=== PATIENT | female | born 1960 | race Caucasian/White ===

== ENCOUNTER 2016-06-11 14:23 | Emergency (ER) | payer OTHER ==
--- NOTE | 2016-06-11 15:05 | ED ORDER SUMMARY ---
..... Patient: KERRIE WYNNE OrderSheet [facility] VisitID: [id number] [address] [place] [address] 56y, F Registration Date/Time: 06/11/2016 ORDER SHEET Weight: 106.5 kg (stated) Allergies: Demerol, Iodine, Morphine and Related, Sulfa Antibiotics, Latex, Iodides, Iodine, Embril GENERAL ORDERS: MEDICATION ORDERS: Dexamethasone IM 8 mg (NOW) (14:46 06/11/2016 HBivens A.R.N.P.) (15:06 EHassan R.N.) Benadryl IM 50 mg (NOW) (14:46 06/11/2016 HBivens A.R.N.P.) (15:06 EHassan R.N.) IV FLUIDS: ORDER SHEET NOTES: [Electronically signed by Lauryn Obando R.N. (15:21 06/11/2016)] [Electronically signed by Lindsey Melvin.R.N.P. (16:12 06/11/2016)] [Electronically locked/signed by Lauryn Obando R.N. (15:21 06/11/2016)]
--- NOTE | 2016-06-11 15:05 | ED NURSING NOTES ---
Clinical Report - Nurses [facility] [address] [place] [address] 06/11/2016 14:24 Patient: KERRIE WYNNE TRIAGE Triage time 14:34. Chief Complaint: SKIN RASH and . "psoriasis outbreak" after trying apple cider vinegar. --14:36 Nicole Sahu R.N. Acuity: LEVEL 5. --14:43 Nicole Sahu R.N. 14:37 06/11/16. BP: 121/70. HR: 97. RR: 15. O2 saturation: 100%. Temp: 97.4 F (oral). Pain level now: 11/05. --14:43 Nicole Sahu R.N. Acuity: LEVEL 5. Alert. No acute distress. SEPSIS SCREEN: Sepsis Screen. Negative (no infection suspected/documented). --14:46 Lauryn Obando R.N. Weight: 106.5 kg stated. Height/Length: 63 inches Per Patient. BMI: 41.6. --14:39 Nicole Sahu R.N. Medications MetFORMIN HCl Oral 1000mg, daily. --14:38 Nicole Sahu R.N. HydrOXYzine HCl Oral. --14:39 Nicole Sahu R.N. ZyrTEC Allergy Childrens Oral. --14:46 Lauryn Obando R.N. Medication/allergy information source: the patient. --14:46 Lauryn Obando R.N. Allergies Demerol. Iodine. Morphine and Related. Sulfa Antibiotics. --14:38 Nicole Sahu R.N. Latex. --14:38 Nicole Sahu R.N. Iodides. Iodine. --14:39 Nicole Sahu R.N. Embril. --14:49 Lauryn Obando R.N. History Arrived by private vehicle. Historian: patient. Accompanied by family. Primary physician (Iraj at [facility]). Reported as generalized in location. It is described as itchy, burning and painful. Treatment DIGITAL MARKETING INTERN: (drinking apple cider vinegar). --14:36 Nicole Sahu R.N. The patient has had fever and itching. No muscle aches, headache, cough or difficulty breathing. Treatment DIGITAL MARKETING INTERN: (hydroxyzine, benadryl). FALL RISK ASSESSMENT: Fall risk assessment completed. No fall risk identified. NUTRITIONAL RISK ASSESSMENT: The nutritional risk assessment revealed no deficiencies. FUNCTIONAL ASSESSMENT: Functional assessment: no impairments noted. LEARNING NEEDS ASSESSMENT: The learning needs assessment revealed no barriers. SKIN INTEGRITY ASSESSMENT: Skin integrity risk assessment completed. No skin integrity risk identified. --14:43 Nicole Sahu R.N. Onset. (3 weeks). It is described as itchy, burning and painful. She was recently exposed to food (as possible allergen). No recent insect bite. She has had itching. No fever, muscle aches, headache, cough or difficulty breathing. No weakness. Treatment DIGITAL MARKETING INTERN: None. PAST MEDICAL HX: Immunizations: up-to-date. Last normal menstrual period- 14 years. The patient has had a hysterectomy. SOCIAL HX: Never smoker. Occasional alcohol use. No drug use. No infectious disease exposure. ABUSE ASSESSMENT: No report of abuse. SELF HARM ASSESSMENT: A self harm assessment was performed. The patient answered "no" to the question "Do you have thoughts of harming or killing yourself?" and "Have you recently had thoughts about harming or killing others?". FALL RISK ASSESSMENT: Fall risk assessment completed. No fall risk identified. NUTRITIONAL RISK ASSESSMENT: The nutritional risk assessment revealed no deficiencies. FUNCTIONAL ASSESSMENT: Functional assessment: no impairments noted. LEARNING NEEDS ASSESSMENT: The learning needs assessment revealed no barriers. SKIN INTEGRITY ASSESSMENT: Skin integrity risk assessment completed. No skin integrity risk identified. --14:46 Lauryn Obando R.N. PROBLEMS: Muscle Spasm. Contusion. Prior Injury, Same Area. Sprain. Immunizations. LNMP - Last Normal Menstrual Period. Tetanus Status. Hypertension. Carpal Bone Fracture. --14:39 Nicole Sahu R.N. ADDITIONAL SURGERIES: . Hysterectomy. Oophorectomy. --14:39 Nicole Sahu R.N. Interventions ID band on patient. --14:43 Nicole Sahu R.N. ID band on patient. --14:46 Lauryn Obando R.N. PHYSICAL ASSESSMENT Ambulatory to room. GENERAL / NEURO / PSYCH: Alert. The patient does not appear to be in acute distress. Appears in pain. Oriented X 4. HEENT: Pupils equal, round and reactive to light. Mucous membranes are pink. RESPIRATORY: Respirations not labored. Breath sounds within normal limits. CVS: Capillary refill less than 2 seconds. Pulses within normal limits. SKIN: Skin is warm and dry. Generalized erythematous, tender, warm, macular, raised, crusting skin rash in the skin folds, right axilla, right groin and left axilla, on the neck, chest, breast, abdomen, back, waist area, right shoulder, right arm, right elbow, right forearm, right buttock, right thigh, right knee, right leg, right ankle, right foot, left shoulder, left arm, left elbow, left forearm and left wrist. Normal skin turgor. Increased warmth present. --14:48 Lauryn Obando R.N. NURSING PROGRESS NOTES The initial plan of care for this patient has been created This plan of care was discussed with the patient. Patient gowned. Reassurance given. Two patient identifiers checked. Call light placed in reach. Side rails up x 1. Bed placed in lowest position. Brakes of bed on. --14:49 Lauryn Obando R.N. 15:01 06/11/2016 Dexamethasone IM 8 mg given. Given in the right gluteus nathalia. Allergies verified and confirmed 5 rights. --15:06 Lauryn Obando R.N. 15:06 06/11/2016 Benadryl (DiphenhydrAMINE HCl) IM 50 mg given. Given in the right deltoid. Allergies verified, confirmed 5 rights and sedative warning given to the patient. --15:06 Lauyrn Obando R.N. 15:15 06/11/2016 Dexamethasone IM Response: no adverse reaction. --15:21 Lauryn Obando R.N. 15:21 06/11/2016 Benadryl IM Response: no adverse reaction. --15:21 Lauryn Obando R.N. DISPOSITION / DISCHARGE Departure time: 1520 PM. Condition at departure: unchanged and stable. The goals identified in the patient's plan of care were met. No learning barriers present. Discharge instructions provided and reviewed with the patient. Reviewed medication(s) side effects, precautions, dosing and course information. Prescription(s) given to the patient. Patient and spouse verbalized understanding. Written instructions provided in Niuean. No treatment instructions or referrals given to the patient. The patient was discharged by the nurse practitioner. She was discharged home and accompanied by spouse. She left the Emergency Department ambulatory and via private vehicle. Spouse driving. FALL RISK ASSESSMENT: Fall risk assessment completed. No fall risk identified. --15:21 Lauryn Obando R.N. 15:15 06/11/16. BP: 125/84. HR: 78. RR: 5. O2 saturation: 100% on room air. Temp: 97.7 F (oral). Pain level now: 8/10. --15:21 Lauryn Obando R.N. Locked/Released at 06/11/2016 15:21 by Lauryn Obando R.N.
--- NOTE | 2016-06-11 15:05 | ED CLINICAL REPORT ---
Clinical Report - Physicians/Mid Levels [facility] [address] [place] [address] 06/11/2016 14:24 Patient: KERRIE WYNNE Time Seen: 14:37; initial patient contact, initial documentation, patient care assumed. Arrived- By private vehicle. Historian- patient and spouse. HISTORY OF PRESENT ILLNESS Chief Complaint: SKIN RASH. This started about 3 weeks ago and is still present and worsening. It is described as itchy, painful and burning. It has been generalized in location. A possible cause has been identified (psoriasis). Similar symptoms previously: Chronically, milder. Recent medical care: The patient was seen recently in the office. ( went to dr about 2 wks ago, given hydroxyzine, no better, has appt with derm 06/26). REVIEW OF SYSTEMS No difficulty breathing. All systems otherwise negative, except as recorded above. PAST HISTORY See nurses notes. PROBLEMS: Muscle Spasm. Contusion. Prior Injury, Same Area. Sprain. Immunizations. LNMP - Last Normal Menstrual Period. Tetanus Status. Hypertension. Carpal Bone Fracture. --14:39 Nicole Sahu R.N. ADDITIONAL SURGERIES: . Hysterectomy. Oophorectomy. --14:39 Nicole Sahu R.N. Severe psoriasis. SOCIAL HISTORY Never smoker. No alcohol use or drug use. No recent travel. Is a local resident. She lives with spouse. FAMILY HISTORY Negative. ADDITIONAL NOTES The nursing notes have been reviewed with agreement regarding the chief complaint, HPI, ROS, PMH and patient medications and allergies. PHYSICAL EXAM Vital Signs: 06/11/2016 14:37 BP: 121/70. HR: 97. RR: 15. O2 saturation: 100%. Temp: 97.4 F. Pain level now: 9/10. Have been reviewed as normal and appear to be correct. Appearance: Alert. Oriented X3. No acute distress. Eyes: Pupils equal, round and reactive to light. Conjunctivae and eyelids normal. ENT: Nose normal. Pharynx normal. Neck: Neck supple. CVS: Normal heart rate and rhythm. Heart sounds normal. Respiratory: No respiratory distress. Breath sounds normal. Chest nontender. Abdomen: Nontender. No organomegaly. (morbid obese). Skin: Skin warm and dry. Normal skin color. Rash present. Normal skin turgor. Generalized severe, well-demarcated, erythematous, macular, raised, crusting, excoriated skin rash with an erythematous base and a cobblestone appearance present in the skin folds- silver crusts present, generalized, worse in skin folds. Extremities: Normal external inspection. Extremities nontender. Neuro: Oriented X 3. No motor deficit. No sensory deficit. PROGRESS AND PROCEDURES Patient and spouse counseled in person regarding the patient's stable condition and diagnosis. Differential Diagnosis: Other possible considerations: psoriasis, fungal, dermatitis, urticaria. Above considerations are based on history and physical exam. Differential diagnosis was discussed with patient. Disposition: Discharged home in good and improved condition (15:04). Condition: good and stable. 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 INSTRUCTIONS Warnings: GENERAL WARNINGS: Return or contact your physician immediately if your condition worsens or changes unexpectedly, if not improving as expected, or if other problems arise. Specifically return if problem worsens. Prescription Medications: Medrol Dosepak: take according to package directions. Dispense one (1) dosepak. No refills. Substitution is permissible. Triamcinolone 0.1% Cream: Apply to affected areas 2 times daily as needed. Dispense fifteen (15) gm. No refills. Follow-up: Follow up with a household coordinator as scheduled even if well. Reason for referral: or sooner if able. Summary of care provided to patient. Understanding of the discharge instructions verbalized by patient. (Electronically signed by Lindsey Melvin A.R.N.P. 06/11/2016 16:12)
--- NOTE | 2016-06-11 15:05 | ED ORDER SUMMARY ---
..... Patient: KERRIE WYNNE OrderSheet [facility] VisitID: [id number] [address] [place] [address] 56y, F Registration Date/Time: 06/11/2016 ORDER SHEET Weight: 106.5 kg (stated) Allergies: Demerol, Iodine, Morphine and Related, Sulfa Antibiotics, Latex, Iodides, Iodine, Embril GENERAL ORDERS: MEDICATION ORDERS: Dexamethasone IM 8 mg (NOW) (14:46 06/11/2016 HBivens A.R.N.P.) (15:06 EHassan R.N.) Benadryl IM 50 mg (NOW) (14:46 06/11/2016 HBivens A.R.N.P.) (15:06 EHassan R.N.) IV FLUIDS: ORDER SHEET NOTES: [Electronically signed by Lauryn Obando R.N. (15:21 06/11/2016)] [Electronically signed by Lindsey Melvin.R.N.P. (16:12 06/11/2016)] [Electronically locked/signed by Lauryn Obando R.N. (15:21 06/11/2016)]
--- NOTE | 2016-06-11 15:05 | ED NURSING NOTES ---
Clinical Report - Nurses [facility] [address] [place] [address] 06/11/2016 14:24 Patient: KERRIE WYNNE TRIAGE Triage time 14:34. Chief Complaint: SKIN RASH and . "psoriasis outbreak" after trying apple cider vinegar. --14:36 Nicole Sahu R.N. Acuity: LEVEL 5. --14:43 Nicole Sahu R.N. 14:37 06/11/16. BP: 121/70. HR: 97. RR: 15. O2 saturation: 100%. Temp: 97.4 F (oral). Pain level now: 11/05. --14:43 Nicole Sahu R.N. Acuity: LEVEL 5. Alert. No acute distress. SEPSIS SCREEN: Sepsis Screen. Negative (no infection suspected/documented). --14:46 Lauryn Obando R.N. Weight: 106.5 kg stated. Height/Length: 63 inches Per Patient. BMI: 41.6. --14:39 Nicole Sahu R.N. Medications MetFORMIN HCl Oral 1000mg, daily. --14:38 Nicole Sahu R.N. HydrOXYzine HCl Oral. --14:39 Nicole Sahu R.N. ZyrTEC Allergy Childrens Oral. --14:46 Lauryn Obando R.N. Medication/allergy information source: the patient. --14:46 Lauryn Obando R.N. Allergies Demerol. Iodine. Morphine and Related. Sulfa Antibiotics. --14:38 Nicole Sahu R.N. Latex. --14:38 Nicole Sahu R.N. Iodides. Iodine. --14:39 Nicole Sahu R.N. Embril. --14:49 Lauryn Obando R.N. History Arrived by private vehicle. Historian: patient. Accompanied by family. Primary physician (Iraj at [facility]). Reported as generalized in location. It is described as itchy, burning and painful. Treatment INTELLIGENCE OFFICER BASIC: (drinking apple cider vinegar). --14:36 Nicole Sahu R.N. The patient has had fever and itching. No muscle aches, headache, cough or difficulty breathing. Treatment INTELLIGENCE OFFICER BASIC: (hydroxyzine, benadryl). FALL RISK ASSESSMENT: Fall risk assessment completed. No fall risk identified. NUTRITIONAL RISK ASSESSMENT: The nutritional risk assessment revealed no deficiencies. FUNCTIONAL ASSESSMENT: Functional assessment: no impairments noted. LEARNING NEEDS ASSESSMENT: The learning needs assessment revealed no barriers. SKIN INTEGRITY ASSESSMENT: Skin integrity risk assessment completed. No skin integrity risk identified. --14:43 Nicole Sahu R.N. Onset. (3 weeks). It is described as itchy, burning and painful. She was recently exposed to food (as possible allergen). No recent insect bite. She has had itching. No fever, muscle aches, headache, cough or difficulty breathing. No weakness. Treatment INTELLIGENCE OFFICER BASIC: None. PAST MEDICAL HX: Immunizations: up-to-date. Last normal menstrual period- 14 years. The patient has had a hysterectomy. SOCIAL HX: Never smoker. Occasional alcohol use. No drug use. No infectious disease exposure. ABUSE ASSESSMENT: No report of abuse. SELF HARM ASSESSMENT: A self harm assessment was performed. The patient answered "no" to the question "Do you have thoughts of harming or killing yourself?" and "Have you recently had thoughts about harming or killing others?". FALL RISK ASSESSMENT: Fall risk assessment completed. No fall risk identified. NUTRITIONAL RISK ASSESSMENT: The nutritional risk assessment revealed no deficiencies. FUNCTIONAL ASSESSMENT: Functional assessment: no impairments noted. LEARNING NEEDS ASSESSMENT: The learning needs assessment revealed no barriers. SKIN INTEGRITY ASSESSMENT: Skin integrity risk assessment completed. No skin integrity risk identified. --14:46 Lauryn Obando R.N. PROBLEMS: Muscle Spasm. Contusion. Prior Injury, Same Area. Sprain. Immunizations. LNMP - Last Normal Menstrual Period. Tetanus Status. Hypertension. Carpal Bone Fracture. --14:39 Nicole Sahu R.N. ADDITIONAL SURGERIES: . Hysterectomy. Oophorectomy. --14:39 Nicole Sahu R.N. Interventions ID band on patient. --14:43 Nicole Sahu R.N. ID band on patient. --14:46 Lauryn Obando R.N. PHYSICAL ASSESSMENT Ambulatory to room. GENERAL / NEURO / PSYCH: Alert. The patient does not appear to be in acute distress. Appears in pain. Oriented X 4. HEENT: Pupils equal, round and reactive to light. Mucous membranes are pink. RESPIRATORY: Respirations not labored. Breath sounds within normal limits. CVS: Capillary refill less than 2 seconds. Pulses within normal limits. SKIN: Skin is warm and dry. Generalized erythematous, tender, warm, macular, raised, crusting skin rash in the skin folds, right axilla, right groin and left axilla, on the neck, chest, breast, abdomen, back, waist area, right shoulder, right arm, right elbow, right forearm, right buttock, right thigh, right knee, right leg, right ankle, right foot, left shoulder, left arm, left elbow, left forearm and left wrist. Normal skin turgor. Increased warmth present. --14:48 Lauryn Obando R.N. NURSING PROGRESS NOTES The initial plan of care for this patient has been created This plan of care was discussed with the patient. Patient gowned. Reassurance given. Two patient identifiers checked. Call light placed in reach. Side rails up x 1. Bed placed in lowest position. Brakes of bed on. --14:49 Lauryn Obando R.N. 15:01 06/11/2016 Dexamethasone IM 8 mg given. Given in the right gluteus nathalia. Allergies verified and confirmed 5 rights. --15:06 Lauryn Obando R.N. 15:06 06/11/2016 Benadryl (DiphenhydrAMINE HCl) IM 50 mg given. Given in the right deltoid. Allergies verified, confirmed 5 rights and sedative warning given to the patient. --15:06 Lauryn Obando R.N. 15:15 06/11/2016 Dexamethasone IM Response: no adverse reaction. --15:21 Lauryn Obando R.N. 15:21 06/11/2016 Benadryl IM Response: no adverse reaction. --15:21 Lauryn Obando R.N. DISPOSITION / DISCHARGE Departure time: 1520 PM. Condition at departure: unchanged and stable. The goals identified in the patient's plan of care were met. No learning barriers present. Discharge instructions provided and reviewed with the patient. Reviewed medication(s) side effects, precautions, dosing and course information. Prescription(s) given to the patient. Patient and spouse verbalized understanding. Written instructions provided in Peruvian. No treatment instructions or referrals given to the patient. The patient was discharged by the nurse practitioner. She was discharged home and accompanied by spouse. She left the Emergency Department ambulatory and via private vehicle. Spouse driving. FALL RISK ASSESSMENT: Fall risk assessment completed. No fall risk identified. --15:21 Lauryn Obando R.N. 15:15 06/11/16. BP: 125/84. HR: 78. RR: 5. O2 saturation: 100% on room air. Temp: 97.7 F (oral). Pain level now: 8/10. --15:21 Lauryn Obando R.N. Locked/Released at 06/11/2016 15:21 by Lauryn Obando R.N.
--- NOTE | 2016-06-11 15:05 | ED CLINICAL REPORT ---
Clinical Report - Physicians/Mid Levels [facility] [address] [place] [address] 06/11/2016 14:24 Patient: KERRIE WYNNE Time Seen: 14:37; initial patient contact, initial documentation, patient care assumed. Arrived- By private vehicle. Historian- patient and spouse. HISTORY OF PRESENT ILLNESS Chief Complaint: SKIN RASH. This started about 3 weeks ago and is still present and worsening. It is described as itchy, painful and burning. It has been generalized in location. A possible cause has been identified (psoriasis). Similar symptoms previously: Chronically, milder. Recent medical care: The patient was seen recently in the office. ( went to dr about 2 wks ago, given hydroxyzine, no better, has appt with derm 06/26). REVIEW OF SYSTEMS No difficulty breathing. All systems otherwise negative, except as recorded above. PAST HISTORY See nurses notes. PROBLEMS: Muscle Spasm. Contusion. Prior Injury, Same Area. Sprain. Immunizations. LNMP - Last Normal Menstrual Period. Tetanus Status. Hypertension. Carpal Bone Fracture. --14:39 Nicole Sahu R.N. ADDITIONAL SURGERIES: . Hysterectomy. Oophorectomy. --14:39 Nicole Sahu R.N. Severe psoriasis. SOCIAL HISTORY Never smoker. No alcohol use or drug use. No recent travel. Is a local resident. She lives with spouse. FAMILY HISTORY Negative. ADDITIONAL NOTES The nursing notes have been reviewed with agreement regarding the chief complaint, HPI, ROS, PMH and patient medications and allergies. PHYSICAL EXAM Vital Signs: 06/11/2016 14:37 BP: 121/70. HR: 97. RR: 15. O2 saturation: 100%. Temp: 97.4 F. Pain level now: 9/10. Have been reviewed as normal and appear to be correct. Appearance: Alert. Oriented X3. No acute distress. Eyes: Pupils equal, round and reactive to light. Conjunctivae and eyelids normal. ENT: Nose normal. Pharynx normal. Neck: Neck supple. CVS: Normal heart rate and rhythm. Heart sounds normal. Respiratory: No respiratory distress. Breath sounds normal. Chest nontender. Abdomen: Nontender. No organomegaly. (morbid obese). Skin: Skin warm and dry. Normal skin color. Rash present. Normal skin turgor. Generalized severe, well-demarcated, erythematous, macular, raised, crusting, excoriated skin rash with an erythematous base and a cobblestone appearance present in the skin folds- silver crusts present, generalized, worse in skin folds. Extremities: Normal external inspection. Extremities nontender. Neuro: Oriented X 3. No motor deficit. No sensory deficit. PROGRESS AND PROCEDURES Patient and spouse counseled in person regarding the patient's stable condition and diagnosis. Differential Diagnosis: Other possible considerations: psoriasis, fungal, dermatitis, urticaria. Above considerations are based on history and physical exam. Differential diagnosis was discussed with patient. Disposition: Discharged home in good and improved condition (15:04). Condition: good and stable. 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 INSTRUCTIONS Warnings: GENERAL WARNINGS: Return or contact your physician immediately if your condition worsens or changes unexpectedly, if not improving as expected, or if other problems arise. Specifically return if problem worsens. Prescription Medications: Medrol Dosepak: take according to package directions. Dispense one (1) dosepak. No refills. Substitution is permissible. Triamcinolone 0.1% Cream: Apply to affected areas 2 times daily as needed. Dispense fifteen (15) gm. No refills. Follow-up: Follow up with a tack picker as scheduled even if well. Reason for referral: or sooner if able. Summary of care provided to patient. Understanding of the discharge instructions verbalized by patient. (Electronically signed by Lindsey Melvin A.R.N.P. 06/11/2016 16:12)
--- NOTE | 2016-06-11 16:12 | ED DISCHARGE INSTRUCTIONS ---
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 INSTRUCTIONS Warnings: GENERAL WARNINGS: Return or contact your physician immediately if your condition worsens or changes unexpectedly, if not improving as expected, or if other problems arise. Specifically return if problem worsens. Prescription Medications: Medrol Dosepak: take according to package directions. Dispense one (1) dosepak. No refills. Substitution is permissible. Triamcinolone 0.1% Cream: Apply to affected areas 2 times daily as needed. Dispense fifteen (15) gm. No refills. Follow-up: Follow up with a running instructor as scheduled even if well. Reason for referral: or sooner if able. Summary of care provided to patient. Understanding of the discharge instructions verbalized by patient. ADDITIONAL INFORMATION Psoriasis Psoriasis is an inflammatory condition that affects the skin and nails. You may have patches of thick, red skin (plaques) covered with silvery scales. These usually appear on the elbows, knees, legs, lower back, and scalp. The plaques itch and can be painful. In more severe cases there may also be psychological and emotional distress. Psoriasis is not contagious but can be inherited. The latest research shows that this may be an immune disorder. The immune system reacts to healthy skin as if it were a foreign substance. This causes skin cells to grow faster than normal and to stack up in raised red patches.The disease is chronic with periods of flares and remissions. Factors such as smoking, sun exposure, and alcohol use may affect how often the psoriasis occurs and how long the flares last. No cure exists, but treatments can offer relief. Treatment consists of a combination of topical creams, light therapy (phototherapy), and oral medicines. Home Care: No specific diet is required. Eat a healthy, well-balanced diet that includes fresh fruits and vegetables, whole grains, and lean meats. Increasing omega-3 fatty acids in your dietcan help improve skin dryness. The best dietary sources are fatty fish (salmon, mackerel, joseph trout, albacore tuna) or fish oil (such as cod liver oil). A great way to take fish oil is to add it to a juice, shake, or smoothie. Flaxseeds and flaxseed oil, canola oil, walnuts, soybean and tofu are converted to omega-3 fatty acid in the body. Maintain a healthy weight. Overlapping skin folds can be a site for psoriasis plaques. If you are overweight, talk to your doctor about a weight-loss program. Bathing daily can help remove scales and calm inflamed skin. Use lukewarm water and mild soaps that have added oils, fats, and moisturizers. Avoid deodorants, antiperspirantsand antibacterial soaps since these have a drying effect. Many find that soaking in a tub with added bath oils, oatmeal, apple cider vinegar, or Epsom salts is helpful. After bathing, apply moisturizing cream (or a skin oil for a stronger effect). Moderate amount of exposure to UV rays from the sun can improve psoriasis but overexposure can trigger an outbreak. It also increases your risk for skin cancer. So limit sun exposure and use sunscreen on healthy skin (at least 15 SPF). If you are prescribed medication, take it as directed. Unless another steroid cream was prescribed, you may use [id number] hydrocortisone cream for a few weeks during flare-ups of your symptoms. Stop smoking. If you are a long-time smoker, this can be hard. Enroll in a stop-smoking program to improve your chance of success. Follow Up with your doctor or as advised by our staff. Get Prompt Medical Attention if any of the following occur: Increasing skin pain Bleeding from the skin plaques that is hard to control Signs of skin infection (redness, increasing pain, swelling, pus) Fever of 100.4F (38C) or higher, or as directed by your healthcare provider Methylprednisolone Oral tablet What is this medicine? METHYLPREDNISOLONE (meth ill pred NISS oh lone) is a corticosteroid. It is commonly used to treat inflammation of the skin, joints, lungs, and other organs. Common conditions treated include asthma, allergies, and arthritis. It is also used for other conditions, such as blood disorders and diseases of the adrenal glands. How should I use this medicine? Take this medicine by mouth with a drink of water. Follow the directions on the prescription label. Take it with food or milk to avoid stomach upset. If you are taking this medicine once a day, take it in the morning. Do not take more medicine than you are told to take. Do not suddenly stop taking your medicine because you may develop a severe reaction. Your doctor will tell you how much medicine to take. If your doctor wants you to stop the medicine, the dose may be slowly lowered over time to avoid any side effects. Talk to your tripper regarding the use of this medicine in children. Special care may be needed. What side effects may I notice from receiving this medicine? Side effects that you should report to your doctor or health direct support professional caregiver as soon as possible: allergic reactions like skin rash, itching or hives, swelling of the face, lips, or tongue eye pain, decreased or blurred vision, or bulging eyes fever, sore throat, sneezing, cough, or other signs of infection, wounds that will not heal increased thirst mental depression, mood swings, mistaken feelings of self importance or of being mistreated pain in hips, back, ribs, arms, shoulders, or legs swelling of the ankles, feet, hands trouble passing urine or change in the amount of urine Side effects that usually do not require medical attention (report to your doctor or health direct support professional caregiver if they continue or are bothersome): confusion, excitement, restlessness headache nausea, vomiting skin problems, acne, thin and shiny skin weight gain What may interact with this medicine? Do not take this medicine with any of the following medications: mifepristone This medicine may also interact with the following medications: tacrolimus vaccines warfarin What if I miss a dose? If you miss a dose, take it as soon as you can. If it is almost time for your next dose, talk to your doctor or health direct support professional caregiver. You may need to miss a dose or take an extra dose. Do not take double or extra doses without advice. Where should I keep my medicine? Keep out of the reach of children. Store at room temperature between 20 and 25 degrees C (68 and 77 degrees F). Throw away any unused medicine after the expiration date. What should I tell my health care provider before I take this medicine? They need to know if you have any of these conditions: David's syndrome diabetes glaucoma heart problems or disease high blood pressure infection such as herpes, measles, tuberculosis, or chickenpox kidney disease liver disease mental problems myasthenia gravis osteoporosis seizures stomach ulcer or intestine disease including colitis and diverticulitis thyroid problem an unusual or allergic reaction to lactose, methylprednisolone, other medicines, foods, dyes, or preservatives or trying to get breast-feeding What should I watch for while using this medicine? Visit your doctor or health direct support professional caregiver for regular checks on your progress. If you are taking this medicine for a long time, carry an identification card with your name and address, the type and dose of your medicine, and your doctor's name and address. The medicine may increase your risk of getting an infection. Stay away from people who are sick. Tell your doctor or health direct support professional caregiver if you are around anyone with measles or chickenpox. If you are going to have surgery, tell your doctor or health direct support professional caregiver that you have taken this medicine within the last twelve months. Ask your doctor or health direct support professional caregiver about your diet. You may need to lower the amount of salt you eat. The medicine can increase your blood sugar. If you are a diabetic check with your doctor if you need help adjusting the dose of your diabetic medicine. Triamcinolone Acetonide, Distilled Water Topical cream What is this medicine? TRIAMCINOLONE (trye am SIN oh lone) is a corticosteroid. It is used on the skin to reduce swelling, redness, itching, and allergic reactions. How should I use this medicine? This medicine is for external use only. Do not take by mouth. Follow the directions on the prescription label. Wash your hands before and after use. Apply a thin film of medicine to the affected area. Do not cover with a bandage or dressing unless your doctor or health direct support professional caregiver tells you to. Do not use on healthy skin or over large areas of skin. Do not get this medicine in your eyes. If you do, rinse out with plenty of cool tap water. It is important not to use more medicine than prescribed. Do not use your medicine more often than directed. Talk to your tripper regarding the use of this medicine in children. Special care may be needed. Elderly patients are more likely to have damaged skin through aging, and this may increase side effects. This medicine should only be used for brief periods and infrequently in older patients. What side effects may I notice from receiving this medicine? Side effects that you should report to your doctor or health direct support professional caregiver as soon as possible: burning or itching of the skin dark red spots on the skin infection painful, red, pus filled blisters in hair follicles thinning of the skin, sunburn more likely especially on the face Side effects that usually do not require medical attention (report to your doctor or health direct support professional caregiver if they continue or are bothersome): dry skin, irritation unusual increased growth of hair on the face or body What may interact with this medicine? Interactions are not expected. What if I miss a dose? If you miss a dose, use it as soon as you can. If it is almost time for your next dose, use only that dose. Do not use double or extra doses. Where should I keep my medicine? Keep out of the reach of children. Store at room temperature between 15 and 30 degrees C (59 and 86 degrees F). Do not freeze. Throw away any unused medicine after the expiration date. What should I tell my health care provider before I take this medicine? They need to know if you have any of these conditions: diabetes infection, like tuberculosis, herpes, or fungal infection large areas of burned or damaged skin skin wasting or thinning an unusual or allergic reaction to triamcinolone, corticosteroids, other medicines, foods, dyes, or preservatives or trying to get breast-feeding What should I watch for while using this medicine? Tell your doctor or health direct support professional caregiver if your symptoms do not start to get better within one week. Do not use for more than 14 days. Do not use on healthy skin or over large areas of skin. Tell your doctor or health direct support professional caregiver if you are exposed to anyone with measles or chickenpox, or if you develop sores or blisters that do not heal properly. Do not use an airtight bandage to cover the affected area unless your doctor or health direct support professional caregiver tells you to. If you are to cover the area, follow the instructions carefully. Covering the area where the medicine is applied can increase the amount that passes through the skin and increases the risk of side effects. If treating the diaper area of a child, avoid covering the treated area with tight-fitting diapers or plastic pants. This may increase the amount of medicine that passes through the skin and increase the risk of serious side effects. You have been given the following additional information: Psoriasis Methylprednisolone Oral tablet Triamcinolone Acetonide, Distilled Water Topical cream (Electronically signed by Lindsey Melvin A.R.N.P. 06/11/2016 16:12)
--- NOTE | 2016-06-11 16:12 | ED MED RECONCILIATION SUMMARY ---
Patient: KERRIE WYNNE Medication Reconciliation Report [facility] VisitID: [id number] [address] [place] [address] 56y, F Registration Date/Time: 06/11/2016 Weight: 106.5 kg Height/Length: 63 in. BMI: 41.6 ALLERGIES: Demerol, Embril, Iodides, Iodine, Iodine, Latex, Morphine and Related, Sulfa Antibiotics The patient's Home Medications are listed below: THE FOLLOWING MEDICATIONS NEED TO BE RECONCILED: HydrOXYzine HCl Oral MetFORMIN HCl Oral 1000mg, daily ZyrTEC Allergy Childrens Oral The source(s) of the original Home Medication information: patient The following Medications were given to the patient in the Emergency Department: Dexamethasone [IM] IM 8 mg, administered: 06/11/2016 3:01:00 PM Benadryl [IM] IM 50 mg, administered: 06/11/2016 3:06:00 PM The following Medications were prescribed to the patient: Medrol Dosepak: take according to package directions. Dispense one (1) dosepak. No refills. Substitution is permissible. -- Lindsey Melvin, ArvindR.N.P. Triamcinolone 0.1% Cream: Apply to affected areas 2 times daily as needed. Dispense fifteen (15) gm. No refills. -- Lindsey Melvin A.R.N.P.
--- NOTE | 2016-06-11 16:12 | ED MAR SUMMARY ---
..... Medication Administration Record [facility] [address] [place] [address] Patient: KERRIE WYNNE Visit ID: [id number] 56y, F Weight: 106.5 kg Height/Length: 63 in BMI: 41.6 ALLERGIES: Iodides, Iodine, Latex, Demerol, Iodine, Morphine and Related, Sulfa Antibiotics, Embril Given 15:06/11/2016 Lauryn Obando R.N. Medication Administered: DEXAMETHASONE [IM], Dose: 8 mg IM. Medication Ordered: Dexamethasone IM 8 mg (NOW). Given 15:06/11/2016 Lauryn Obando RAdelineNAdeline Medication Administered: BENADRYL [IM] (DIPHENHYDRAMINE HCL), Dose: 50 mg IM. Medication Ordered: Benadryl IM 50 mg (NOW).
--- NOTE | 2016-06-11 16:12 | ED MED RECONCILIATION SUMMARY ---
Patient: KERRIE WYNNE Medication Reconciliation Report [facility] VisitID: [id number] [address] [place] [address] 56y, F Registration Date/Time: 06/11/2016 Weight: 106.5 kg Height/Length: 63 in. BMI: 41.6 ALLERGIES: Demerol, Embril, Iodides, Iodine, Iodine, Latex, Morphine and Related, Sulfa Antibiotics The patient's Home Medications are listed below: THE FOLLOWING MEDICATIONS NEED TO BE RECONCILED: HydrOXYzine HCl Oral MetFORMIN HCl Oral 1000mg, daily ZyrTEC Allergy Childrens Oral The source(s) of the original Home Medication information: patient The following Medications were given to the patient in the Emergency Department: Dexamethasone [IM] IM 8 mg, administered: 06/11/2016 3:01:00 PM Benadryl [IM] IM 50 mg, administered: 06/11/2016 3:06:00 PM The following Medications were prescribed to the patient: Medrol Dosepak: take according to package directions. Dispense one (1) dosepak. No refills. Substitution is permissible. -- Lindsey Melvin, ArvindR.N.P. Triamcinolone 0.1% Cream: Apply to affected areas 2 times daily as needed. Dispense fifteen (15) gm. No refills. -- Lindsey Melvin A.R.N.P.
--- NOTE | 2016-06-11 16:12 | ED DISCHARGE INSTRUCTIONS ---
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 INSTRUCTIONS Warnings: GENERAL WARNINGS: Return or contact your physician immediately if your condition worsens or changes unexpectedly, if not improving as expected, or if other problems arise. Specifically return if problem worsens. Prescription Medications: Medrol Dosepak: take according to package directions. Dispense one (1) dosepak. No refills. Substitution is permissible. Triamcinolone 0.1% Cream: Apply to affected areas 2 times daily as needed. Dispense fifteen (15) gm. No refills. 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 Reason for referral: or sooner if able. Summary of care provided to patient. Understanding of the discharge instructions verbalized by patient. ADDITIONAL INFORMATION Psoriasis Psoriasis is an inflammatory condition that affects the skin and nails. You may have patches of thick, red skin (plaques) covered with silvery scales. These usually appear on the elbows, knees, legs, lower back, and scalp. The plaques itch and can be painful. In more severe cases there may also be psychological and emotional distress. Psoriasis is not contagious but can be inherited. The latest research shows that this may be an immune disorder. The immune system reacts to healthy skin as if it were a foreign substance. This causes skin cells to grow faster than normal and to stack up in raised red patches.The disease is chronic with periods of flares and remissions. Factors such as smoking, sun exposure, and alcohol use may affect how often the psoriasis occurs and how long the flares last. No cure exists, but treatments can offer relief. Treatment consists of a combination of topical creams, light therapy (phototherapy), and oral medicines. Home Care: No specific diet is required. Eat a healthy, well-balanced diet that includes fresh fruits and vegetables, whole grains, and lean meats. Increasing omega-3 fatty acids in your dietcan help improve skin dryness. The best dietary sources are fatty fish (salmon, mackerel, joseph trout, albacore tuna) or fish oil (such as cod liver oil). A great way to take fish oil is to add it to a juice, shake, or smoothie. Flaxseeds and flaxseed oil, canola oil, walnuts, soybean and tofu are converted to omega-3 fatty acid in the body. Maintain a healthy weight. Overlapping skin folds can be a site for psoriasis plaques. If you are overweight, talk to your doctor about a weight-loss program. Bathing daily can help remove scales and calm inflamed skin. Use lukewarm water and mild soaps that have added oils, fats, and moisturizers. Avoid deodorants, antiperspirantsand antibacterial soaps since these have a drying effect. Many find that soaking in a tub with added bath oils, oatmeal, apple cider vinegar, or Epsom salts is helpful. After bathing, apply moisturizing cream (or a skin oil for a stronger effect). Moderate amount of exposure to UV rays from the sun can improve psoriasis but overexposure can trigger an outbreak. It also increases your risk for skin cancer. So limit sun exposure and use sunscreen on healthy skin (at least 15 SPF). If you are prescribed medication, take it as directed. Unless another steroid cream was prescribed, you may use [id number] hydrocortisone cream for a few weeks during flare-ups of your symptoms. Stop smoking. If you are a long-time smoker, this can be hard. Enroll in a stop-smoking program to improve your chance of success. Follow Up with your doctor or as advised by our staff. Get Prompt Medical Attention if any of the following occur: Increasing skin pain Bleeding from the skin plaques that is hard to control Signs of skin infection (redness, increasing pain, swelling, pus) Fever of 100.4F (38C) or higher, or as directed by your healthcare provider Methylprednisolone Oral tablet What is this medicine? METHYLPREDNISOLONE (meth ill pred NISS oh lone) is a corticosteroid. It is commonly used to treat inflammation of the skin, joints, lungs, and other organs. Common conditions treated include asthma, allergies, and arthritis. It is also used for other conditions, such as blood disorders and diseases of the adrenal glands. How should I use this medicine? Take this medicine by mouth with a drink of water. Follow the directions on the prescription label. Take it with food or milk to avoid stomach upset. If you are taking this medicine once a day, take it in the morning. Do not take more medicine than you are told to take. Do not suddenly stop taking your medicine because you may develop a severe reaction. Your doctor will tell you how much medicine to take. If your doctor wants you to stop the medicine, the dose may be slowly lowered over time to avoid any side effects. Talk to your road freight conductor regarding the use of this medicine in children. Special care may be needed. What side effects may I notice from receiving this medicine? Side effects that you should report to your doctor or health pet care assistant as soon as possible: allergic reactions like skin rash, itching or hives, swelling of the face, lips, or tongue eye pain, decreased or blurred vision, or bulging eyes fever, sore throat, sneezing, cough, or other signs of infection, wounds that will not heal increased thirst mental depression, mood swings, mistaken feelings of self importance or of being mistreated pain in hips, back, ribs, arms, shoulders, or legs swelling of the ankles, feet, hands trouble passing urine or change in the amount of urine Side effects that usually do not require medical attention (report to your doctor or health pet care assistant if they continue or are bothersome): confusion, excitement, restlessness headache nausea, vomiting skin problems, acne, thin and shiny skin weight gain What may interact with this medicine? Do not take this medicine with any of the following medications: mifepristone This medicine may also interact with the following medications: tacrolimus vaccines warfarin What if I miss a dose? If you miss a dose, take it as soon as you can. If it is almost time for your next dose, talk to your doctor or health pet care assistant. You may need to miss a dose or take an extra dose. Do not take double or extra doses without advice. Where should I keep my medicine? Keep out of the reach of children. Store at room temperature between 20 and 25 degrees C (68 and 77 degrees F). Throw away any unused medicine after the expiration date. What should I tell my health care provider before I take this medicine? They need to know if you have any of these conditions: David's syndrome diabetes glaucoma heart problems or disease high blood pressure infection such as herpes, measles, tuberculosis, or chickenpox kidney disease liver disease mental problems myasthenia gravis osteoporosis seizures stomach ulcer or intestine disease including colitis and diverticulitis thyroid problem an unusual or allergic reaction to lactose, methylprednisolone, other medicines, foods, dyes, or preservatives or trying to get breast-feeding What should I watch for while using this medicine? Visit your doctor or health pet care assistant for regular checks on your progress. If you are taking this medicine for a long time, carry an identification card with your name and address, the type and dose of your medicine, and your doctor's name and address. The medicine may increase your risk of getting an infection. Stay away from people who are sick. Tell your doctor or health pet care assistant if you are around anyone with measles or chickenpox. If you are going to have surgery, tell your doctor or health pet care assistant that you have taken this medicine within the last twelve months. Ask your doctor or health pet care assistant about your diet. You may need to lower the amount of salt you eat. The medicine can increase your blood sugar. If you are a diabetic check with your doctor if you need help adjusting the dose of your diabetic medicine. Triamcinolone Acetonide, Distilled Water Topical cream What is this medicine? TRIAMCINOLONE (trye am SIN oh lone) is a corticosteroid. It is used on the skin to reduce swelling, redness, itching, and allergic reactions. How should I use this medicine? This medicine is for external use only. Do not take by mouth. Follow the directions on the prescription label. Wash your hands before and after use. Apply a thin film of medicine to the affected area. Do not cover with a bandage or dressing unless your doctor or health pet care assistant tells you to. Do not use on healthy skin or over large areas of skin. Do not get this medicine in your eyes. If you do, rinse out with plenty of cool tap water. It is important not to use more medicine than prescribed. Do not use your medicine more often than directed. Talk to your road freight conductor regarding the use of this medicine in children. Special care may be needed. Elderly patients are more likely to have damaged skin through aging, and this may increase side effects. This medicine should only be used for brief periods and infrequently in older patients. What side effects may I notice from receiving this medicine? Side effects that you should report to your doctor or health pet care assistant as soon as possible: burning or itching of the skin dark red spots on the skin infection painful, red, pus filled blisters in hair follicles thinning of the skin, sunburn more likely especially on the face Side effects that usually do not require medical attention (report to your doctor or health pet care assistant if they continue or are bothersome): dry skin, irritation unusual increased growth of hair on the face or body What may interact with this medicine? Interactions are not expected. What if I miss a dose? If you miss a dose, use it as soon as you can. If it is almost time for your next dose, use only that dose. Do not use double or extra doses. Where should I keep my medicine? Keep out of the reach of children. Store at room temperature between 15 and 30 degrees C (59 and 86 degrees F). Do not freeze. Throw away any unused medicine after the expiration date. What should I tell my health care provider before I take this medicine? They need to know if you have any of these conditions: diabetes infection, like tuberculosis, herpes, or fungal infection large areas of burned or damaged skin skin wasting or thinning an unusual or allergic reaction to triamcinolone, corticosteroids, other medicines, foods, dyes, or preservatives or trying to get breast-feeding What should I watch for while using this medicine? Tell your doctor or health pet care assistant if your symptoms do not start to get better within one week. Do not use for more than 14 days. Do not use on healthy skin or over large areas of skin. Tell your doctor or health pet care assistant if you are exposed to anyone with measles or chickenpox, or if you develop sores or blisters that do not heal properly. Do not use an airtight bandage to cover the affected area unless your doctor or health pet care assistant tells you to. If you are to cover the area, follow the instructions carefully. Covering the area where the medicine is applied can increase the amount that passes through the skin and increases the risk of side effects. If treating the diaper area of a child, avoid covering the treated area with tight-fitting diapers or plastic pants. This may increase the amount of medicine that passes through the skin and increase the risk of serious side effects. You have been given the following additional information: Psoriasis Methylprednisolone Oral tablet Triamcinolone Acetonide, Distilled Water Topical cream (Electronically signed by Lindsey Melvin A.R.N.P. 06/11/2016 16:12)
--- NOTE | 2016-06-11 16:12 | ED MAR SUMMARY ---
..... Medication Administration Record [facility] [address] [place] [address] Patient: KERRIE WYNNE Visit ID: [id number] 56y, F Weight: 106.5 kg Height/Length: 63 in BMI: 41.6 ALLERGIES: Iodides, Iodine, Latex, Demerol, Iodine, Morphine and Related, Sulfa Antibiotics, Embril Given 15:06/11/2016 Lauryn Obando R.N. Medication Administered: DEXAMETHASONE [IM], Dose: 8 mg IM. Medication Ordered: Dexamethasone IM 8 mg (NOW). Given 15:06/11/2016 Lauryn Obando RAdelineNAdeline Medication Administered: BENADRYL [IM] (DIPHENHYDRAMINE HCL), Dose: 50 mg IM. Medication Ordered: Benadryl IM 50 mg (NOW).
== END 2016-06-11 15:21 | disposition home or self-care (01) ==
LOC: ED SRH 14:23
DX: L40.0 Psoriasis vulgaris (principal); L53.9 Erythematous condition, unspecified; I10 Essential (primary) hypertension; Z79.84 Long term (current) use of oral hypoglycemic drugs; Z88.2 Allergy status to sulfonamides; Z88.5 Allergy status to narcotic agent; Z88.8 Allergy status to other drugs, medicaments and biological substances